=== PATIENT | female | born 1985 | race American Indian/Alaskan Native ===

== ENCOUNTER 2018-10-11 12:19 | Outpatient (CLI) | payer OTHER | END 2018-10-11 13:22 | disposition home or self-care (01) | LOC: NST 12:19 | DX: Z34.83 Encounter for supervision of other normal pregnancy, third trimester (principal) ==

== ENCOUNTER 2018-11-06 11:00 | Inpatient (IN) | payer OTHER ==
[~2018-11-06] VITALS: Ht 165.1 cm; Wt 71.7 kg
== END 2018-11-17 13:32 | DRG 807 ==
LOC: ADM 11:00 → EDSTATUS 11:00 → LDR 11-15 10:34 → OB/GYN 11-15 21:12 → SURH 11-16 11:00 → OB/GYN 11-17 13:32 → SURH 11-27 11:00
PROVIDERS: ADMIT Obstetrics & Gynecology Maternal & Fetal Medicine
PROC: 10E0XZZ Delivery of Products of Conception, External Approach (ICD-10-PCS; principal; 2018-11-15)
PROC: 0HQ9XZZ Repair Perineum Skin, External Approach (ICD-10-PCS; 2018-11-15)
PROC: 4A0HXFZ Measurement of Products of Conception, Cardiac Rhythm, External Approach (ICD-10-PCS; 2018-11-15)
DX: O70.1 Second degree perineal laceration during delivery (principal); Z37.0 Single live birth; Z3A.37 37 weeks gestation of pregnancy

== ENCOUNTER 2019-08-28 10:10 | Outpatient (CLI) | payer OTHER | END 2019-08-28 11:40 | disposition home or self-care (01) | LOC: NUCLEAR 10:10 | DX: I83.11 Varicose veins of right lower extremity with inflammation (principal); O09.72 Supervision of high risk pregnancy due to social problems, second trimester; I82.403 Acute embolism and thrombosis of unspecified deep veins of lower extremity, bilateral ==

== ENCOUNTER 2021-08-21 15:29 | Emergency (ER) | payer OTHER ==
[~2021-08-21] VITALS: Ht 165.1 cm; Wt 59.0 kg
[2021-08-21] MEDS ORDERED: EC-NAPROSYN375 MG PO (17:39)
[2021-08-21] MEDS ORDERED: SKELAXIN800 MG PO (17:39)
== END 2021-08-21 18:12 | disposition home or self-care (01) ==
LOC: ER
DX: S01.01XA Laceration without foreign body of scalp, initial encounter (principal); W19.XXXA Unspecified fall, initial encounter; Y92.9 Unspecified place or not applicable

== ENCOUNTER 2023-01-13 16:26 | Outpatient (CLI) | payer OTHER ==
[~2023-01-13 16:26] MED LIST: EC-NAPROSYN375 MG PO; SKELAXIN800 MG PO
== END 2023-01-13 17:02 | disposition home or self-care (01) ==
LOC: NST 16:26
PROVIDERS: ATTEND Obstetrics & Gynecology
DX: O36.8130 Decreased fetal movements, third trimester, not applicable or unspecified (principal); Z3A.37 37 weeks gestation of pregnancy

== ENCOUNTER 2023-01-24 10:09 | Outpatient (CLI) | payer OTHER | END 2023-01-24 12:37 | disposition still patient (30) | LOC: NST 10:09 | PROVIDERS: ATTEND Obstetrics & Gynecology | DX: Z34.83 Encounter for supervision of other normal pregnancy, third trimester (principal) ==

== ENCOUNTER 2023-01-24 10:45 | Inpatient (IN) | payer OTHER ==
[~2023-01-24] VITALS: Ht 165.1 cm; Wt 74.4 kg
[2023-01-25] MEDS ORDERED: INTEGRA PLUS C1 EACH (09:46)
== END 2023-01-26 11:32 | disposition home or self-care (01) | DRG 807 ==
LOC: LDR → OB/GYN 19:04 → LDR 01-29 12:58
PROVIDERS: ADMIT Obstetrics & Gynecology; ATTEND Obstetrics & Gynecology
PROC: 10E0XZZ Delivery of Products of Conception, External Approach (ICD-10-PCS; principal; 2023-01-24)
PROC: 0HQ9XZZ Repair Perineum Skin, External Approach (ICD-10-PCS; 2023-01-24)
PROC: 4A1HXCZ Monitoring of Products of Conception, Cardiac Rate, External Approach (ICD-10-PCS; 2023-01-24)
DX: O70.0 First degree perineal laceration during delivery (principal); Z37.0 Single live birth; Z3A.39 39 weeks gestation of pregnancy; Z20.822 Contact with and (suspected) exposure to COVID-19